=== PATIENT | female | born 1960 | race Caucasian/White ===

== ENCOUNTER → 2017-06-04 | Day surgery (SDC) | payer BC ==
[~2017-06-04] VITALS: Ht 172.7 cm; Wt 69.1 kg
[~2017-06-04] MED LIST: *morphine SULFATE 10 MG/ML PERIprocedure ONLY ONE; ACETAMINOPHEN 1000 MG/100 ML 100 ML IV ONE; BUPIVACAINE HCL PF 0.25% 30 ML VIAL ONE; CALCTAB94 PO; CHLORHEXIDINE GLUCONATE 2 % 1 PACK (2 CLOTHS) TOPICAL PRN; CHLORHEXIDINE GLUCONATE 4% SOLN 120 ML BTL TOPICAL SCH; DEXAMETHASONE SOD PHOS 4 MG/ML VIAL IV ONE; DO NOT ADM ANY ANTICOAGULANT DRUGS PRN; GENTAMICIN SULFATE 80 MG/2 ML VIAL ONE; HYDR25TA5 PO; HYDROmorphone HCL PF 2 MG/ML VIAL ONE; KETOROLAC TROMETHAMINE 30 MG/ML (IVP) VIAL IVP ONE; LACTATED RINGER'S 1000 ML INJ 1,000 ML IV ONE; LACTATED RINGER'S 1000 ML IV PRN; LIDOCAINE HCL 1% 50 ML VIAL ONE; LIDOCAINE HCL 1% PF 5 ML SYRINGE OTHER ONE; METOPROLOL TARTRATE 25 MG TAB PO PRN; MIDAZOLAM HCL 2 MG/2 ML VIAL ONE; MORPHINE SULFATE 4 MG/ML INJ IV PUSH PRN; ONDANSETRON HCL 4 MG/2 ML VIAL IV ONE; ONDANSETRON HCL 4 MG/2 ML VIAL IV PUSH PRN; PERC5TAB12 PO; POVIDONE IODINE 5% (ANTISEPSIS KIT) 4 APPLICATIONS EACH NARE PRN; PROPOFOL 200 MG/20 ML AMP IV ONE; SODIUM CHLORID 0.9% 500 ML IV PRN; SODIUM CHLORIDE 0.9% FLUSH 10 ML FLUSH IV FLUSH PRN; SODIUM CHLORIDE 0.9% FLUSH 10 ML FLUSH IV FLUSH SCH; TURM500C7 PO; VANCOMYCIN 1000 MG/NS 250 ML (for <70 kg) IV SCH; ceFAZolin 2 GM PREMIX 50 ML IV SCH; oxyCODONE/ACETAMINOPHEN 5 MG/325 MG TAB PO PRN
[2017-06-04 10:50] VITALS: BP 11/58; PULSE 65; RESP 16; TEMP 97.7; O2SAT 99
--- NOTE | 2017-06-04 12:27 | PD.OP ---
cc: Titi Balderas Jr., MD Operative Report Date of Surgery: Jun 04, 2017 Preoperative Diagnosis: 1-Left fifth proximal phalanx fracture 2- Comminuted Left fifth metacarpal neck fracture Postoperative Diagnosis: Same Procedure: 1-open reduction internal fixation left hip proximal phalanx 2 -closed reduction and splinting of the fifth metacarpal neck fracture Anesthesia: Gen. Surgeon: Titi Balderas Portainer Operator(s): Hospital staff Resident Surgeon: Buddy Operation and Findings: Patient was seen and evaluated preoperatively and found to have a displaced left fifth proximal phalanx as well as a displaced left fifth metacarpal head. Informed consent was obtained after detailed discussion of risk and benefits including bleeding, infection, injury to arteries, nerves, and blood vessels, weakness and numbness of hand, and tendon rupture. Informed consent was obtained. Patient received IV antibiotics prior to incision. Timeout procedure was performed. Operative extremity was prepped with alcohol followed by Hibiclens and draped usual sterile fashion. A longitudinal dorsal incision overlying the ulnar border of the proximal phalanx. Dissection carefully taken down to level of the bone taking care not to injure the digital neurovascular bundle.Using a small clamp the fracture was reduced and fixed with a 1.5 mm lag screw. Fluoroscopy confirmed appropriate alignment of fracture. The fifth met a couple head had significant comminution of the neck with only a small distal articular piece. Closed reduction was adequate as this was not amenable to pin fixation. Fluoroscopy confirmed appropriate alignment of fracture with well-placed hardware. The wound was thoroughly irrigated with sterile saline. Skin closed with 3-0 nylon. Sterile dressings were applied with Xeroform, 4 x 4, soft roll, and a well padded splint. Patient was awakened and transferred to recovery room in stable condition POSTP-OP PLAN OF ACTIVITY Antibiotics: none Weight bearing status: NWB Dressing: Do not remove splints/cast. Pin site care qday (when present) Dispo: expected discharge home from PACU today Titi Balderas Jr., MD Jun 04, 2017 12:27
--- NOTE | 2017-06-04 13:25 | RADRPT ---
EXAM DATE/TIME: 06/04/2017 08:55 [facility] COMPARISON: No previous studies available for comparison. INDICATIONS : ORIF of the left hand, fifth day. MEDICAL HISTORY : Hypertension. SURGICAL HISTORY : Appendectomy. Hysterectomy. ENCOUNTER: Initial ACUITY: 1 day PAIN SCORE: Non-responsive. LOCATION: Left hand. FINDINGS: Pin is seen bridging the fracture base of the fifth digit in anatomic alignment. Fracture distal fif th metatarsal is noted as well CONCLUSION: Lamina as above Maxi Molina MD FACR on June 04, 2017 at 13:23 Board Certified Radiologist. This report was verified electronically.
--- NOTE | 2017-06-04 13:36 | EKG ---
Date Performed: 06/04/2017 Time Performed: 06:49:53 PTAGE: 56 years EKG: Sinus rhythm NORMAL ECG NO PREVIOUS TRACING DOCTOR: Dario Stewart Interpretating Date/Time 06/04/2017 13:34:30
== END | disposition home or self-care (01) ==
LOC: HSDC 05:54
PROVIDERS: ATTEND Orthopaedic Surgery
DX: S62.617A Displaced fracture of proximal phalanx of left little finger, initial encounter for closed fracture (principal); S62.337A Displaced fracture of neck of fifth metacarpal bone, left hand, initial encounter for closed fracture; I10 Essential (primary) hypertension; W19.XXXA Unspecified fall, initial encounter
CPT/HCPCS: 01820; 26605; 26735; 73120; 76000; 86850; 86900; 86901; 93005; C1713; J0131; J0690; J1100; J1170; J1580; J1885; J2250; J2270; J2405; J3010; J3370; J7050; J7120